=== PATIENT | female | born 1955 | race Caucasian/White ===

== ENCOUNTER 2016-08-17 13:40 | Outpatient (CLI) | payer OTHER ==
--- NOTE | 2016-08-17 16:50 | DIAGNOSTIC IMAGING REPORT ---
PROCEDURE: MR LUMBAR SPINE W/O CONTRAST INDICATION: LOW BACK PAIN TECHNIQUE: Noncontrast T1, T2, and STIR sagittal images. T1 and T2 axial images. COMPARISON: None. FINDINGS: Normal alignment without fracture or suspicious osseous lesion. Mild degenerative changes with L5-S1 fatty endplate degenerative changes. L5 bony hemangioma. Desiccation of the L3-4 and L4-5 disc spaces. Severe L5-S1 disc space narrowing. Normal conus. L1-2: Normal appearance. L2-3: Small left foraminal disc bulge and note mild facet arthropathy but there is no significant foraminal stenosis. No spinal stenosis. L3-4: Small broad-based disc bulge/spur complex with mild facet arthropathy. There is mild bilateral of foraminal stenosis. No spinal stenosis. L4-5: Right foraminal disc bulge superimposed on a broad-based disc bulge with severe facet arthropathy and thickening of the ligament flava. There is moderate right and mild left foraminal stenosis. There is also mild spinal stenosis. disc bulge L5-S1: Mild broad-based disc bulge/spur complex with facet arthropathy resulting in mild bilateral foraminal stenosis. There is no spinal stenosis. IMPRESSION: 1. Mild degenerative changes 2. Mild bilateral L3-4 foraminal stenosis 3. L4-5 right foraminal disc bulge resulting in moderate right and mild left foraminal stenosis. There is also mild spinal stenosis 4. Mild bilateral L5-S1 foraminal stenosis
== END 2016-08-17 23:00 ==
LOC: MRI SRH 13:40
DX: M48.06 Spinal stenosis, lumbar region (principal); M51.26 Other intervertebral disc displacement, lumbar region; M48.07 Spinal stenosis, lumbosacral region